=== PATIENT | female | born 1995 | race American Indian/Alaskan Native ===

== ENCOUNTER 2020-07-03 10:56 | Observation (INO) | payer OTHER ==
--- NOTE | 2020-07-03 15:12 | Ultrasound Report ---
US OB BPP wo non-stress, US OB limited INDICATION / CLINICAL INFORMATION: well being. COMPARISON: None available. FINDINGS: A single live fetus is seen in cephalic presentation. heart rate is 149. PAGE is 14.4. The place nta is fundal and grade 2 with multiple echogenic areas in it. BPP is 6/8 due to abnormal postu re and tone IMPRESSION: Single live fetus in cephalic presentation with heart rate of 149. PAGE is 14.4. Multiple echoge jennifer areas are seen in the placenta. BPP is 6/8 due to abnormal posture and tone Signer Name: Gael Crawford MD FACR Signed: 07/03/2020 3:08 PM Workstation Name: [id number]
--- NOTE | 2020-07-04 07:59 | Ultrasound Report ---
ULTRASOUND BIOPHYSICAL PROFILE INDICATION: last bpp6// wellbeing. COMPARISON: 07/03/2020 FINDINGS: heart rate is 148 beats per minute. breathing movement = 2 Gross body movement = 2 tone = 2 Qualitative amniotic fluid volume = 2 IMPRESSION: biophysical profile = 05/12 Signer Name: Harry Holliday Jr, MD Signed: 07/04/2020 7:54 AM Workstation Name: [id number]
[2020-07-04 09:18] VITALS: BP 108/65
== END 2020-07-04 11:30 | disposition home or self-care (01) ==
LOC: TRG 10:56 → APU 10:56 → LD 11:10 → TRG 11:10
PROVIDERS: ADMIT Obstetrics & Gynecology; ATTEND Obstetrics & Gynecology
DX: O48.0 Post-term pregnancy (principal); Z3A.40 40 weeks gestation of pregnancy
CPT/HCPCS: 76815; 76819; G0378

== ENCOUNTER 2020-07-10 15:14 | Inpatient (IN) | payer OTHER ==
[2020-07-10] MEDS ORDERED: fentaNYL 100 MCG/2 ML INJ IV PRN (18:05)
[2020-07-10] MEDS ORDERED: MINERAL OIL 30 ML ORAL LIQD PO PRN (18:05)
[2020-07-10] MEDS ORDERED: ONDANSETRON 4 MG/2 ML INJ IV PRN (18:05)
[2020-07-10] MEDS ORDERED: TERBUTALINE 1 MG/1 ML INJ SUB-Q PRN (18:05)
[2020-07-10] MEDS ORDERED: LIDOCAINE (2%) 20 MG/1 ML VIAL 20 ML MDV INFILTRATI ONE (18:05)
[2020-07-10] MEDS ORDERED: ePHEDrine SULFATE 50 MG/1 ML INJ IV PRN (18:05)
[2020-07-10] MEDS ORDERED: AMPICILLIN/NS 2 GM/100 ML 2 GM/100 ML BAG IV ONE (18:05)
--- NOTE | 2020-07-10 18:42 | History and Physical Report ---
History of Present Illness Date of examination: 07/10/20 Date of admission: 07/10/20 15:14 Chief complaint: IOL secondary to post-date History of present illness: 25 yo, @ 41.1 wks, initiated care with [facility] at 9.1 wks gestation. Her has been complicated by +GBS culture, varicella non- immune status and infant flattened nasal bone (not absent, care co-managed by [facility]. She reports to [facility] for scheduled IOL secondary to post-date . She reports +FM. Denies any VB or LOF. Labs: B+, antibody negative; PAP smear normal; rubella immune; VDRL non-reactive; urine culture negative; HIV negative; varicella non-immune; GC/Chlamydia/Trich negative; 1 hr gtt unknown; GBS positive. Past History Past Medical History: no pertinent history Past Surgical History: other (Elective ) Family/Genetic History: cancer (PGF - prostate) Social history: single, Lives alone, full code. denies: smoking, alcohol abuse, prescription drug abuse, IV drug use - Obstetrical History Expected Date of Delivery: 07/02/20 Actual Gestation: 41 Week(s) 1 Day(s) : 2 Para: 0 Hx # Term Pregnancies: 0 Number of Pregnancies: 0 Spontaneous Abortions: 0 Induced : 1 Number of Living Children: 0 Medications and Allergies Allergies Allergy/AdvReac Type Severity Reaction Status Date / Time No Known Allergies Allergy Verified 07/03/20 11:09 Home Medications Medication Instructions Recorded Confirmed Last Taken Type No Known Home Medications [No 07/03/20 07/03/20 Unknown History Reported Home Medications] Active Meds: Active Medications Butorphanol Tartrate (Stadol) 2 mg IV Q2H PRN PRN Reason: Pain , Severe (7-10) Ephedrine Sulfate (Ephedrine Sulfate) 10 mg IV Q2M PRN PRN Reason: Hypotension Fentanyl (Sublimaze) 100 mcg IV Q2H PRN PRN Reason: Pain,Severe (7-10) LABOR PAIN Oxytocin/Sodium Chloride (Pitocin/Ns 30 Unit/500ml) 30 units in 500 mls @ 2 mls/hr IV TITR CAROLINE; Protocol Lactated Ringer's (Lactated Ringers) 1,000 mls @ 125 mls/hr IV DIRECT CAROLINE Oxytocin/Sodium Chloride (Pitocin/Ns 30 Unit/500ml) 30 units in 500 mls @ 40 mls/hr IV TITR CAROLINE; Protocol Ampicillin Sodium (Ampicillin/Ns 2 Gm/100 Ml) 2 gm in 100 mls @ 100 mls/hr IV ONCE ONE; Protocol Stop: 07/10/20 19:04 Ampicillin Sodium (Ampicillin/Ns 1 Gm/50 Ml) 1 gm in 50 mls @ 100 mls/hr IV Q4HR CAROLINE; Protocol Mineral Oil (Mineral Oil) 30 ml PO QHS PRN PRN Reason: Constipation Ondansetron HCl (Zofran) 4 mg IV Q8H PRN PRN Reason: Nausea And Vomiting Terbutaline Sulfate (Brethine) 0.25 mg SUB-Q ONCE PRN PRN Reason: Hyperstimulation/Hypertonicity Review of Systems All systems: negative - Physical Exam Breasts: Positive: normal Cardiovascular: Regular rate Lungs: Positive: Normal air movement Abdomen: Positive: other (gravid) Genitourinary (Female): Positive: normal external genitalia, normal perenium Vagina: Positive: normal moisture Uterus: Positive: enlarged (S=D) Deep Tendon Reflex Grade: Normal +2 - Obstetrical FHR: category 1 Uterine Contraction Monitor Mode: External Cervical Dilatation: 0 (vertex, confirmed by U/S) Cervical Effacement Percentage: 50 station: -3 Uterine Contraction Pattern: Absent Uterine Tone Measurement Phase: Resting Results All other labs normal. Assessment and Plan - Patient Problems (1) Encounter for induction of labor Current Visit: Yes Status: Acute Plan to address problem: Admit to L & D Cervidil x 12 hrs as tolerated Pain meds as desired per order Anticipate (2) GBS (group B Streptococcus carrier), +RV culture, currently Current Visit: Yes Status: Acute Plan to address problem: Initiate GBS protocol (3) Maternal varicella, non-immune Current Visit: Yes Status: Acute
[2020-07-10] MEDS ORDERED: OXYTOCIN DRIP 30 UNITS/500 ML BAG IV SCH (19:00)
[2020-07-10 19:19] LABS: Hematocrit 35.8 % (30.3-42.9); Hemoglobin 12.2 gm/dl (10.1-14.3); Mean Corpuscular HGB Conc 34 % (30-34); Mean Corpuscular Volume 92 fl (79-97); Platelet Count 342 K/mm3 (140-440); Red Blood Count 3.91 M/mm3 (3.65-5.03); Red Cell Distribution Width 14.6 % (13.2-15.2)
[2020-07-10] MEDS ORDERED: DINOPROSTONE 10 MG VAG SUPP VG ONE (20:28)
[2020-07-10] MEDS: LACTATED RINGERS 1,000 ML IV SCH (21:28)
[2020-07-11] MEDS ORDERED: AMPICILLIN/NS 2 GM/100 ML 2 GM/100 ML BAG IV ONE (08:24)
--- NOTE | 2020-07-11 10:34 | Progress Note ---
Assessment and Plan A: IUP @ 41 2/7 Weeks Category I Tracing GBS Positive P: Cook's Cervical Ripening Balloon Placed Start Low-Dose Pitocin Continue GBS Prophylaxis Subjective - Subjective Date of service: 07/11/20 Patient reports: movement normal Objective - Vital Signs Vital Signs: Vital Signs - 12hr 07/10/20 07/10/20 07/10/20 22:35 22:40 22:45 Temperature Pulse Rate 110 H 113 H 114 H Respiratory Rate Blood Pressure Blood Pressure [Right] O2 Sat by Pulse 96 95 97 Oximetry 07/10/20 07/10/20 07/10/20 22:50 22:55 23:00 Temperature Pulse Rate 107 H 117 H 117 H Respiratory Rate Blood Pressure Blood Pressure [Right] O2 Sat by Pulse 95 96 97 Oximetry 07/10/20 07/10/20 07/10/20 23:05 23:10 23:15 Temperature Pulse Rate 120 H 116 H 119 H Respiratory Rate Blood Pressure Blood Pressure [Right] O2 Sat by Pulse 96 96 96 Oximetry 07/10/20 07/10/20 07/10/20 23:20 23:25 23:30 Temperature Pulse Rate 111 H 114 H 108 H Respiratory Rate Blood Pressure Blood Pressure [Right] O2 Sat by Pulse 96 97 97 Oximetry 07/10/20 07/10/20 07/10/20 23:35 23:40 23:52 Temperature Pulse Rate 117 H 109 H 104 H Respiratory Rate Blood Pressure Blood Pressure [Right] O2 Sat by Pulse 96 97 97 Oximetry 07/10/20 07/11/20 07/11/20 23:57 00:00 00:01 Temperature 97.8 F Pulse Rate 112 H 114 H Respiratory Rate Blood Pressure 108/59 Blood Pressure [Right] O2 Sat by Pulse 97 Oximetry 07/11/20 07/11/20 07/11/20 00:02 00:07 00:12 Temperature Pulse Rate 108 H 111 H 109 H Respiratory Rate Blood Pressure Blood Pressure [Right] O2 Sat by Pulse 96 96 96 Oximetry 07/11/20 07/11/20 07/11/20 00:17 00:22 00:27 Temperature Pulse Rate 103 H 112 H 108 H Respiratory Rate Blood Pressure Blood Pressure [Right] O2 Sat by Pulse 97 97 97 Oximetry 07/11/20 07/11/20 07/11/20 00:32 00:37 00:42 Temperature Pulse Rate 111 H 113 H 112 H Respiratory Rate Blood Pressure Blood Pressure [Right] O2 Sat by Pulse 95 96 96 Oximetry 07/11/20 07/11/20 07/11/20 00:47 00:52 00:57 Temperature Pulse Rate 109 H 105 H 113 H Respiratory Rate Blood Pressure Blood Pressure [Right] O2 Sat by Pulse 97 97 96 Oximetry 07/11/20 07/11/20 07/11/20 00:59 01:02 01:04 Temperature Pulse Rate 114 H 113 H 112 H Respiratory Rate Blood Pressure Blood Pressure [Right] O2 Sat by Pulse 94 96 94 Oximetry 07/11/20 07/11/20 07/11/20 01:07 01:12 01:17 Temperature Pulse Rate 115 H 112 H 111 H Respiratory Rate Blood Pressure Blood Pressure [Right] O2 Sat by Pulse 95 95 95 Oximetry 07/11/20 07/11/20 07/11/20 01:19 01:22 01:24 Temperature Pulse Rate 108 H 115 H 112 H Respiratory Rate Blood Pressure Blood Pressure [Right] O2 Sat by Pulse 94 95 94 Oximetry 07/11/20 07/11/20 07/11/20 01:27 01:32 01:51 Temperature Pulse Rate 111 H 113 H 115 H Respiratory Rate Blood Pressure Blood Pressure [Right] O2 Sat by Pulse 94 96 96 Oximetry 07/11/20 07/11/20 07/11/20 01:56 01:59 02:01 Temperature Pulse Rate 113 H 111 H 110 H Respiratory Rate Blood Pressure Blood Pressure [Right] O2 Sat by Pulse 95 94 96 Oximetry 07/11/20 07/11/20 07/11/20 02:06 02:11 02:15 Temperature Pulse Rate 110 H 109 H 110 H Respiratory Rate Blood Pressure Blood Pressure [Right] O2 Sat by Pulse 96 95 94 Oximetry 07/11/20 07/11/20 07/11/20 02:16 02:21 02:26 Temperature Pulse Rate 110 H 110 H 112 H Respiratory Rate Blood Pressure Blood Pressure [Right] O2 Sat by Pulse 95 95 94 Oximetry 07/11/20 07/11/20 07/11/20 02:31 02:36 02:41 Temperature Pulse Rate 107 H 111 H 110 H Respiratory Rate Blood Pressure Blood Pressure [Right] O2 Sat by Pulse 97 94 98 Oximetry 07/11/20 07/11/20 07/11/20 02:46 02:51 02:56 Temperature Pulse Rate 108 H 110 H 104 H Respiratory Rate Blood Pressure Blood Pressure [Right] O2 Sat by Pulse 98 98 94 Oximetry 07/11/20 07/11/20 07/11/20 03:01 03:06 03:10 Temperature Pulse Rate 101 H 111 H 112 H Respiratory Rate Blood Pressure Blood Pressure [Right] O2 Sat by Pulse 97 95 94 Oximetry 07/11/20 07/11/20 07/11/20 03:11 03:16 03:21 Temperature Pulse Rate 115 H 113 H 112 H Respiratory Rate Blood Pressure Blood Pressure [Right] O2 Sat by Pulse 95 95 95 Oximetry 07/11/20 07/11/20 07/11/20 03:24 03:26 03:50 Temperature Pulse Rate 116 H 117 H 107 H Respiratory Rate Blood Pressure Blood Pressure [Right] O2 Sat by Pulse 94 94 97 Oximetry 07/11/20 07/11/20 07/11/20 03:55 04:00 04:05 Temperature Pulse Rate 107 H 108 H 105 H Respiratory Rate Blood Pressure 105/58 Blood Pressure [Right] O2 Sat by Pulse 95 97 95 Oximetry 07/11/20 07/11/20 07/11/20 04:10 04:15 04:20 Temperature Pulse Rate 105 H 105 H 102 H Respiratory Rate Blood Pressure Blood Pressure [Right] O2 Sat by Pulse 95 95 95 Oximetry 07/11/20 07/11/20 07/11/20 04:23 04:25 04:30 Temperature 97.8 F Pulse Rate 119 H 104 H Respiratory Rate Blood Pressure Blood Pressure [Right] O2 Sat by Pulse 97 95 Oximetry 07/11/20 07/11/20 07/11/20 04:33 04:35 04:40 Temperature Pulse Rate 106 H 107 H 110 H Respiratory Rate Blood Pressure Blood Pressure [Right] O2 Sat by Pulse 94 95 95 Oximetry 07/11/20 07/11/20 07/11/20 04:45 04:50 04:55 Temperature Pulse Rate 111 H 123 H 105 H Respiratory Rate Blood Pressure Blood Pressure [Right] O2 Sat by Pulse 96 96 97 Oximetry 07/11/20 07/11/20 07/11/20 05:27 05:32 05:37 Temperature Pulse Rate 108 H 111 H 108 H Respiratory Rate Blood Pressure Blood Pressure [Right] O2 Sat by Pulse 96 96 96 Oximetry 07/11/20 07/11/20 07/11/20 05:42 05:47 05:52 Temperature Pulse Rate 106 H 108 H 108 H Respiratory Rate Blood Pressure Blood Pressure [Right] O2 Sat by Pulse 96 96 96 Oximetry 07/11/20 07/11/20 07/11/20 05:57 06:02 06:07 Temperature Pulse Rate 109 H 108 H 111 H Respiratory Rate Blood Pressure Blood Pressure [Right] O2 Sat by Pulse 96 96 96 Oximetry 07/11/20 07/11/20 07/11/20 06:12 06:17 06:22 Temperature Pulse Rate 109 H 120 H 112 H Respiratory Rate Blood Pressure Blood Pressure [Right] O2 Sat by Pulse 96 96 95 Oximetry 07/11/20 07/11/20 07/11/20 06:24 06:27 06:29 Temperature Pulse Rate 110 H 114 H 111 H Respiratory Rate Blood Pressure Blood Pressure [Right] O2 Sat by Pulse 94 95 94 Oximetry 07/11/20 07/11/20 07/11/20 06:32 06:37 06:42 Temperature Pulse Rate 114 H 114 H 109 H Respiratory Rate Blood Pressure Blood Pressure [Right] O2 Sat by Pulse 96 95 97 Oximetry 07/11/20 07/11/20 07/11/20 06:47 06:52 06:57 Temperature Pulse Rate 111 H 104 H 113 H Respiratory Rate Blood Pressure Blood Pressure [Right] O2 Sat by Pulse 95 96 95 Oximetry 07/11/20 07/11/20 07/11/20 06:59 07:02 07:07 Temperature Pulse Rate 107 H 114 H 109 H Respiratory Rate Blood Pressure Blood Pressure [Right] O2 Sat by Pulse 94 96 96 Oximetry 07/11/20 07/11/20 07/11/20 07:11 07:12 07:16 Temperature 98.2 F Pulse Rate 106 H 109 H 103 H Respiratory 18 Rate Blood Pressure 103/62 Blood Pressure 103/62 [Right] O2 Sat by Pulse 97 96 94 Oximetry 07/11/20 07/11/20 07/11/20 07:17 07:22 07:27 Temperature Pulse Rate 109 H 112 H 109 H Respiratory Rate Blood Pressure Blood Pressure [Right] O2 Sat by Pulse 96 96 96 Oximetry 07/11/20 07/11/20 07/11/20 07:32 07:37 07:42 Temperature Pulse Rate 113 H 108 H 106 H Respiratory Rate Blood Pressure Blood Pressure [Right] O2 Sat by Pulse 96 97 98 Oximetry 07/11/20 07/11/20 07/11/20 07:48 08:33 08:38 Temperature Pulse Rate 110 H 98 H Respiratory Rate Blood Pressure 103/71 Blood Pressure [Right] O2 Sat by Pulse 99 95 97 Oximetry 07/11/20 07/11/20 07/11/20 08:43 08:48 08:53 Temperature Pulse Rate 110 H 104 H 104 H Respiratory Rate Blood Pressure Blood Pressure [Right] O2 Sat by Pulse 98 98 98 Oximetry 07/11/20 07/11/20 07/11/20 08:58 09:03 09:08 Temperature Pulse Rate 102 H 102 H 104 H Respiratory Rate Blood Pressure Blood Pressure [Right] O2 Sat by Pulse 97 98 98 Oximetry 07/11/20 07/11/20 07/11/20 09:13 09:18 09:22 Temperature Pulse Rate 106 H 100 H 97 H Respiratory Rate Blood Pressure 106/63 Blood Pressure [Right] O2 Sat by Pulse 98 99 Oximetry 07/11/20 07/11/20 07/11/20 09:23 09:28 09:33 Temperature Pulse Rate 105 H 105 H 107 H Respiratory Rate Blood Pressure Blood Pressure [Right] O2 Sat by Pulse 99 99 99 Oximetry 07/11/20 07/11/20 07/11/20 09:38 09:43 09:48 Temperature Pulse Rate 100 H 99 H 106 H Respiratory Rate Blood Pressure Blood Pressure [Right] O2 Sat by Pulse 99 98 98 Oximetry 07/11/20 07/11/20 07/11/20 10:12 10:17 10:20 Temperature Pulse Rate 107 H 100 H 103 H Respiratory Rate Blood Pressure Blood Pressure [Right] O2 Sat by Pulse 99 100 85 Oximetry 07/11/20 07/11/20 10:22 10:27 Temperature Pulse Rate 109 H 111 H Respiratory Rate Blood Pressure Blood Pressure [Right] O2 Sat by Pulse 100 99 Oximetry - Exam Breasts: normal Cardiovascular: Regular rate Lungs: Clear to auscultation, Normal air movement Abdomen: Present: normal appearance, soft Uterus: Present: normal, firm, fundal height above umbilicus FHR: category 1 Uterine Contraction Monitor Mode: External Cervical Dilatation: 1 Cervical Effacement Percentage: 30 station: -3 Uterine Contraction Pattern: Irregular Uterine Tone Measurement Phase: Resting Uterine Contraction Intensity: Mild Extremities: normal - Labs Labs: Laboratory Results - last 24 hr 07/10/20 07/10/20 17:12 17:12 WBC 8.9 RBC 3.91 Hgb 12.2 Hct 35.8 MCV 92 MCH 31 MCHC 34 RDW 14.6 Plt Count 342 Blood Type B POSITIVE Antibody Screen Negative
[2020-07-11] MEDS: OXYTOCIN DRIP 30 UNITS/500 ML BAG IV SCH ×5 (10:45→18:39)
[2020-07-11] MEDS: LACTATED RINGERS 1,000 ML IV SCH ×2 (11:30→16:00)
[2020-07-11] MEDS: AMPICILLIN/NS 1 GM/50 ML 1 GM/50 ML BAG IV SCH ×3 (13:35→23:44)
--- NOTE | 2020-07-11 18:42 | Progress Note ---
Assessment and Plan A: IUP @ 41 2/7 Weeks Category I Tracing GBS Positive Active Labor P: AROM Continue Pitocin Augmentation Continue GBS Prophylaxis Subjective - Subjective Date of service: 07/11/20 Patient reports: movement normal, contractions Objective - Vital Signs Vital Signs: Vital Signs - 12hr 07/11/20 07/11/20 07/11/20 06:42 06:47 06:52 Temperature Pulse Rate 109 H 111 H 104 H Respiratory Rate Blood Pressure Blood Pressure [Right] O2 Sat by Pulse 97 95 96 Oximetry 07/11/20 07/11/20 07/11/20 06:57 06:59 07:02 Temperature Pulse Rate 113 H 107 H 114 H Respiratory Rate Blood Pressure Blood Pressure [Right] O2 Sat by Pulse 95 94 96 Oximetry 07/11/20 07/11/20 07/11/20 07:07 07:11 07:12 Temperature 98.2 F Pulse Rate 109 H 106 H 109 H Respiratory 18 Rate Blood Pressure 103/62 Blood Pressure 103/62 [Right] O2 Sat by Pulse 96 97 96 Oximetry 07/11/20 07/11/20 07/11/20 07:16 07:17 07:22 Temperature Pulse Rate 103 H 109 H 112 H Respiratory Rate Blood Pressure Blood Pressure [Right] O2 Sat by Pulse 94 96 96 Oximetry 07/11/20 07/11/20 07/11/20 07:27 07:32 07:37 Temperature Pulse Rate 109 H 113 H 108 H Respiratory Rate Blood Pressure Blood Pressure [Right] O2 Sat by Pulse 96 96 97 Oximetry 07/11/20 07/11/20 07/11/20 07:42 07:48 08:33 Temperature Pulse Rate 106 H 110 H Respiratory Rate Blood Pressure 103/71 Blood Pressure [Right] O2 Sat by Pulse 98 99 95 Oximetry 07/11/20 07/11/20 07/11/20 08:38 08:43 08:48 Temperature Pulse Rate 98 H 110 H 104 H Respiratory Rate Blood Pressure Blood Pressure [Right] O2 Sat by Pulse 97 98 98 Oximetry 07/11/20 07/11/20 07/11/20 08:53 08:58 09:03 Temperature Pulse Rate 104 H 102 H 102 H Respiratory Rate Blood Pressure Blood Pressure [Right] O2 Sat by Pulse 98 97 98 Oximetry 07/11/20 07/11/20 07/11/20 09:08 09:13 09:18 Temperature Pulse Rate 104 H 106 H 100 H Respiratory Rate Blood Pressure Blood Pressure [Right] O2 Sat by Pulse 98 98 99 Oximetry 07/11/20 07/11/20 07/11/20 09:22 09:23 09:28 Temperature Pulse Rate 97 H 105 H 105 H Respiratory Rate Blood Pressure 106/63 Blood Pressure [Right] O2 Sat by Pulse 99 99 Oximetry 07/11/20 07/11/20 07/11/20 09:33 09:38 09:43 Temperature Pulse Rate 107 H 100 H 99 H Respiratory Rate Blood Pressure Blood Pressure [Right] O2 Sat by Pulse 99 99 98 Oximetry 07/11/20 07/11/20 07/11/20 09:48 10:12 10:17 Temperature Pulse Rate 106 H 107 H 100 H Respiratory Rate Blood Pressure Blood Pressure [Right] O2 Sat by Pulse 98 99 100 Oximetry 07/11/20 07/11/20 07/11/20 10:20 10:22 10:27 Temperature Pulse Rate 103 H 109 H 111 H Respiratory Rate Blood Pressure Blood Pressure [Right] O2 Sat by Pulse 85 100 99 Oximetry 07/11/20 07/11/20 07/11/20 10:32 10:35 10:37 Temperature Pulse Rate 100 H 102 H 99 H Respiratory Rate Blood Pressure 110/59 Blood Pressure [Right] O2 Sat by Pulse 98 99 Oximetry 07/11/20 07/11/20 07/11/20 10:42 10:47 10:52 Temperature Pulse Rate 102 H 99 H 108 H Respiratory Rate Blood Pressure Blood Pressure [Right] O2 Sat by Pulse 99 99 99 Oximetry 07/11/20 07/11/20 07/11/20 10:57 11:01 11:02 Temperature 98.4 F Pulse Rate 109 H 103 H Respiratory Rate Blood Pressure Blood Pressure 120/71 [Right] O2 Sat by Pulse 99 100 Oximetry 07/11/20 07/11/20 07/11/20 11:04 11:07 11:12 Temperature Pulse Rate 102 H 109 H 111 H Respiratory Rate Blood Pressure 120/71 Blood Pressure [Right] O2 Sat by Pulse 99 99 Oximetry 07/11/20 07/11/20 07/11/20 11:17 11:19 11:22 Temperature Pulse Rate 107 H 109 H Respiratory 19 Rate Blood Pressure Blood Pressure [Right] O2 Sat by Pulse 99 100 Oximetry 07/11/20 07/11/20 07/11/20 11:27 11:32 11:35 Temperature Pulse Rate 107 H 103 H 105 H Respiratory Rate Blood Pressure 131/64 Blood Pressure [Right] O2 Sat by Pulse 100 100 Oximetry 07/11/20 07/11/20 07/11/20 11:37 11:42 11:58 Temperature Pulse Rate 102 H 100 H 113 H Respiratory Rate Blood Pressure Blood Pressure [Right] O2 Sat by Pulse 100 100 98 Oximetry 07/11/20 07/11/20 07/11/20 12:03 12:06 12:08 Temperature Pulse Rate 115 H 62 110 H Respiratory Rate Blood Pressure Blood Pressure [Right] O2 Sat by Pulse 98 84 99 Oximetry 07/11/20 07/11/20 07/11/20 12:10 12:13 12:18 Temperature Pulse Rate 110 H 110 H 106 H Respiratory Rate Blood Pressure 116/80 Blood Pressure [Right] O2 Sat by Pulse 98 98 Oximetry 07/11/20 07/11/20 07/11/20 12:23 12:28 12:33 Temperature Pulse Rate 108 H 113 H 112 H Respiratory Rate Blood Pressure Blood Pressure [Right] O2 Sat by Pulse 98 97 96 Oximetry 07/11/20 07/11/20 07/11/20 12:35 12:38 12:43 Temperature Pulse Rate 109 H 111 H 111 H Respiratory Rate Blood Pressure 98/56 Blood Pressure [Right] O2 Sat by Pulse 97 97 Oximetry 07/11/20 07/11/20 07/11/20 12:48 12:53 12:58 Temperature Pulse Rate 111 H 112 H 111 H Respiratory Rate Blood Pressure Blood Pressure [Right] O2 Sat by Pulse 96 96 96 Oximetry 07/11/20 07/11/20 07/11/20 13:03 13:05 13:08 Temperature Pulse Rate 111 H 108 H 111 H Respiratory Rate Blood Pressure 99/53 Blood Pressure [Right] O2 Sat by Pulse 96 97 Oximetry 07/11/20 07/11/20 07/11/20 13:13 13:18 13:23 Temperature Pulse Rate 113 H 108 H 112 H Respiratory Rate Blood Pressure Blood Pressure [Right] O2 Sat by Pulse 96 96 96 Oximetry 07/11/20 07/11/20 07/11/20 13:34 13:35 13:39 Temperature Pulse Rate 103 H 105 H 116 H Respiratory Rate Blood Pressure 109/53 Blood Pressure [Right] O2 Sat by Pulse 98 98 Oximetry 07/11/20 07/11/20 07/11/20 13:44 13:49 13:54 Temperature Pulse Rate 108 H 109 H 107 H Respiratory Rate Blood Pressure Blood Pressure [Right] O2 Sat by Pulse 98 97 97 Oximetry 07/11/20 07/11/20 07/11/20 13:59 14:04 14:07 Temperature Pulse Rate 107 H 113 H 107 H Respiratory Rate Blood Pressure 103/51 Blood Pressure [Right] O2 Sat by Pulse 97 97 Oximetry 07/11/20 07/11/20 07/11/20 14:09 14:14 14:19 Temperature Pulse Rate 112 H 109 H 105 H Respiratory Rate Blood Pressure Blood Pressure [Right] O2 Sat by Pulse 97 97 98 Oximetry 07/11/20 07/11/20 07/11/20 14:24 14:29 14:34 Temperature Pulse Rate 110 H 108 H 108 H Respiratory Rate Blood Pressure Blood Pressure [Right] O2 Sat by Pulse 97 97 97 Oximetry 07/11/20 07/11/20 07/11/20 14:35 14:39 14:44 Temperature Pulse Rate 107 H 116 H 105 H Respiratory Rate Blood Pressure 107/58 Blood Pressure [Right] O2 Sat by Pulse 98 97 Oximetry 07/11/20 07/11/20 07/11/20 14:49 14:54 14:59 Temperature Pulse Rate 110 H 109 H 111 H Respiratory Rate Blood Pressure Blood Pressure [Right] O2 Sat by Pulse 97 97 97 Oximetry 07/11/20 07/11/20 07/11/20 15:00 15:04 15:06 Temperature 98.3 F Pulse Rate 107 H 107 H 113 H Respiratory 18 Rate Blood Pressure 108/58 112/57 Blood Pressure 108/58 [Right] O2 Sat by Pulse 97 98 Oximetry 07/11/20 07/11/20 07/11/20 15:26 15:31 15:36 Temperature Pulse Rate 104 H 96 H 93 H Respiratory Rate Blood Pressure 91/49 Blood Pressure [Right] O2 Sat by Pulse 98 98 99 Oximetry 07/11/20 07/11/20 07/11/20 15:41 15:43 15:46 Temperature Pulse Rate 100 H 95 H 101 H Respiratory Rate Blood Pressure 92/55 Blood Pressure [Right] O2 Sat by Pulse 98 98 Oximetry 07/11/20 07/11/20 07/11/20 15:51 15:56 16:01 Temperature Pulse Rate 101 H 100 H 102 H Respiratory Rate Blood Pressure Blood Pressure [Right] O2 Sat by Pulse 98 98 98 Oximetry 07/11/20 07/11/20 07/11/20 16:06 16:07 16:11 Temperature Pulse Rate 102 H 99 H 98 H Respiratory Rate Blood Pressure 97/54 Blood Pressure [Right] O2 Sat by Pulse 99 98 Oximetry 07/11/20 07/11/20 07/11/20 16:16 16:21 16:26 Temperature Pulse Rate 100 H 105 H 98 H Respiratory Rate Blood Pressure Blood Pressure [Right] O2 Sat by Pulse 98 98 98 Oximetry 07/11/20 07/11/20 07/11/20 16:31 16:41 16:46 Temperature Pulse Rate 98 H 107 H 106 H Respiratory Rate Blood Pressure Blood Pressure [Right] O2 Sat by Pulse 98 99 98 Oximetry 07/11/20 07/11/20 07/11/20 16:51 16:56 17:01 Temperature Pulse Rate 103 H 99 H 101 H Respiratory Rate Blood Pressure Blood Pressure [Right] O2 Sat by Pulse 98 97 98 Oximetry 07/11/20 07/11/20 07/11/20 17:05 17:06 17:11 Temperature Pulse Rate 100 H 111 H 101 H Respiratory Rate Blood Pressure 107/65 Blood Pressure [Right] O2 Sat by Pulse 98 98 Oximetry 07/11/20 07/11/20 07/11/20 17:16 17:21 17:26 Temperature Pulse Rate 107 H 104 H 99 H Respiratory Rate Blood Pressure Blood Pressure [Right] O2 Sat by Pulse 98 99 98 Oximetry 07/11/20 07/11/20 07/11/20 17:31 17:35 17:42 Temperature Pulse Rate 100 H 100 H 105 H Respiratory Rate Blood Pressure 107/57 Blood Pressure [Right] O2 Sat by Pulse 99 100 Oximetry 07/11/20 07/11/20 07/11/20 17:47 17:52 17:57 Temperature Pulse Rate 106 H 106 H 101 H Respiratory Rate Blood Pressure Blood Pressure [Right] O2 Sat by Pulse 100 99 99 Oximetry 07/11/20 07/11/20 07/11/20 18:02 18:07 18:12 Temperature Pulse Rate 114 H 107 H 101 H Respiratory Rate Blood Pressure 112/57 Blood Pressure [Right] O2 Sat by Pulse 100 100 99 Oximetry 07/11/20 07/11/20 07/11/20 18:21 18:26 18:31 Temperature Pulse Rate 106 H 105 H 114 H Respiratory Rate Blood Pressure Blood Pressure [Right] O2 Sat by Pulse 99 99 100 Oximetry 07/11/20 18:36 Temperature Pulse Rate 107 H Respiratory Rate Blood Pressure 122/59 Blood Pressure [Right] O2 Sat by Pulse 99 Oximetry - Exam Abdomen: Present: normal appearance, soft Uterus: Present: normal, firm, fundal height above umbilicus FHR: category 1 Uterine Contraction Monitor Mode: External Cervical Dilatation: 6.5 (AROM of a moderate amt of clear fluid at 18:35) Cervical Effacement Percentage: 60 station: -2 Uterine Contraction Frequency (min): 2 Uterine Contraction Pattern: Regular Uterine Tone Measurement Phase: Resting Uterine Contraction Intensity: Moderate Extremities: normal - Labs Labs: Laboratory Results - last 24 hr 07/10/20 07/10/20 17:12 17:12 WBC 8.9 RBC 3.91 Hgb 12.2 Hct 35.8 MCV 92 MCH 31 MCHC 34 RDW 14.6 Plt Count 342 Blood Type B POSITIVE Antibody Screen Negative
[2020-07-11] MEDS: BUTORPHANOL 2 MG/1 ML INJ IV PRN ×2 (21:20→23:54)
[2020-07-11] MEDS ORDERED: NalbUPHINE 10 MG/1 ML INJ IV PRN (22:40)
[2020-07-12] MEDS: LACTATED RINGERS 1,000 ML IV SCH ×3 (01:55→06:45)
[2020-07-12] MEDS ORDERED: fentaNYL-BUPIV 2 MCG/ML-0.125% 200 MCG/100 ML BAG EPIDURAL ONE (02:38)
[2020-07-12] MEDS ORDERED: DEXMEDETOMIDINE 200 MCG/2 ML VIAL IV ONE (03:01)
[2020-07-12] MEDS ORDERED: ONDANSETRON 4 MG/2 ML INJ IV PRN (03:27)
[2020-07-12] MEDS ORDERED: NalbUPHINE 10 MG/1 ML INJ IV PRN (03:27)
[2020-07-12] MEDS ORDERED: NALOXONE 2 MG/2 ML INJ IV PRN (03:27)
[2020-07-12] MEDS ORDERED: diphenhydrAMINE 50 MG/ML VIAL IV PRN (03:27)
--- NOTE | 2020-07-12 03:28 | Anesthesia Consultation ---
Anesthesia Consult and Med Hx Date of service: 07/12/20 - Airway Anesthetic Teeth Evaluation: Good ROM Head & Neck: Adequate Mental/Hyoid Distance: Adequate Intubation Access Assessment: Good - Pulmonary Exam CTA: Yes - Cardiac Exam Cardiac Exam: RRR - Pre-Operative Health Status ASA Pre-Surgery Classification: ASA2 Proposed Anesthetic Plan: Epidural - Pulmonary Hx Smoking: No Hx Asthma: No COPD: No Hx Pneumonia: No Hx Sleep Apnea: No - Cardiovascular System Hx Hypertension: No - Central Nervous System Hx Seizures: No Hx Psychiatric Problems: No - Gastrointestinal Hx Gastroesophageal Reflux Disease: No - Endocrine Hx Renal Disease: No Hx End Stage Renal Disease: No Hx Hypothyroidism: No Hx Hyperthyroidism: No - Hematic Hx Anemia: Yes (no meds) Hx Sickle Cell Disease: No - Other Systems Hx Alcohol Use: No
--- NOTE | 2020-07-12 03:30 | Progress Note ---
Labor Epidural - Labor Epidural Start Time: 03:07 Stop Time: 03:21 Performed by:: RENAE CHEUNG Procedure: Patient is requesting a laboring epidural for laboring pain. Patient IDed, H&P reviewed, all questions and concerns were answered, and consent was signed. Timeout was performed at bedside. Patient in sitting position. Sterile prep and drape was performed. 3ml of 1% lidocaine skin wheal at L[3]- L [4]. 18- gauge Touhy epidural needle was advanced to loss of resistance with air technique. Negative CSF negative blood. Epidural catheter advanced to [12] centimeters. [-] Aspiration [-] test dose. Sterile dressing applied. Patient tolerated procedure.
[2020-07-12] MEDS: AMPICILLIN/NS 1 GM/50 ML 1 GM/50 ML BAG IV SCH (03:44)
[2020-07-12] MEDS ORDERED: fentaNYL-BUPIV 2 MCG/ML-0.125% 200 MCG/100 ML BAG EPIDURAL SCH (04:00)
--- NOTE | 2020-07-12 08:24 | Procedure Note ---
OB Delivery Note - Delivery Date of Delivery: 07/12/20 (0751) Surgeon: NOELLE FLOR Estimated blood loss: other (250) - Vaginal Delivery presentation: vertex Delivery position: OA Delivery induction: cervidil Delivery augmentation: rupture of membranes, pitocin Delivery monitor: external FHT, external uterine Route of delivery: Delivery placenta: spontaneous Delivery cord: 3 umbilical vessels Episiotomy: none Delivery laceration: none Anesthesia: epidural Delivery comments: of a live 7'6 female over a intact perineum under epidural anesthesia with Apgars of 5 and 9 at 0751 on 07/12/2020. Cord clamped and cut by JESUS Flor, infant to warmer; code [place] called. Cord blood gasses collected x 2. Spontaneous delivery of placenta complete and intact with [place]lain side at 0800. Fundus is firm and midline located 3 below the U. Lochia is scant. GBS prophylaxis x 6. - A at 1 minute: 5 at 5 minutes: 9 Gender: Female (7'6)
[2020-07-12] MEDS ORDERED: WITCH HAZEL/ GLYCERIN PAD TP PRN (09:00)
[2020-07-12] MEDS ORDERED: HYDROcodone/ACETAMINOPHEN 5-325 MG TAB PO PRN (09:00)
[2020-07-12] MEDS ORDERED: LANOLIN/ZINC/DIMETHICONE (LANSINOH) 7 GM TP PRN (09:00)
--- NOTE | 2020-07-12 09:31 | Post Anesthesia Evaluation ---
- Post Anesthesia Evaluation Patient Participated: Yes Airway Patent: Yes Stable Respiratory Function: Yes Nausea/Vomiting: No Temp > 96.8F: Yes Pain Manageable: Yes Adequeate Hydration: Yes Anesthesia Complications: No Block Receding Appropriately: Yes Patient on Ventilator: No
[2020-07-12] MEDS: IBUPROFEN 600 MG TAB PO SCH ×3 (12:05→23:55)
[2020-07-13 01:53] LABS: Hematocrit 31.8 % (30.3-42.9); Hemoglobin 10.6 gm/dl (10.1-14.3)
[2020-07-13] MEDS: IBUPROFEN 600 MG TAB PO SCH ×2 (05:14→13:10)
--- NOTE | 2020-07-13 09:29 | Discharge Summary ---
Providers - Providers Date of Admission: 07/10/20 15:14 Date of discharge: 07/13/20 (1200) Attending physician: LEX GARDUNO JR, MD Primary care physician: LEX GARDUNO JR, MD Hospitalization Reason for admission: induction of labor (secondary to post-dates) Delivery: Episiotomy: none Laceration: none complications: none Discharge diagnosis: IUP at term delivered baby: female Hospital course: See admission H & P; OB delivery summary and PP progress notes Condition at discharge: Good Disposition: DC-01 TO HOME OR SELFCARE - Discharge Diagnoses (1) Status post normal vaginal delivery Status: Acute (2) Anemia Status: Acute Qualifiers: Anemia type: other cause Other causes of anemia: acute posthemorrhagic Qualified Code(s): D62 - Acute posthemorrhagic anemia Comment: Asymptomatic Plan - Provider Discharge Summary Activity: routine, no sex for 6 weeks, no heavy lifting 4 weeks, no strenuous exercise Diet: other (Iron rich diet) Instructions: routine Additional instructions: [] Smoking cessation referral if applicable(refer to patient education folder for contact #) [] Refer to [facility] Booklet Call your doctor immediately for: * Fever > 100.5 * Heavy vaginal bleeding ( >1 pad per hour) * Severe persistent headache * Shortness of breath * Reddened, hot, painful area to leg or breast - Follow up plan Follow up: LEX GARDUNO JR, MD [Primary Care Provider] - 6 Weeks
[2020-07-13 17:03] VITALS: BP 112/56
== END 2020-07-13 15:45 | disposition home or self-care (01) | DRG 775 ==
LOC: APU 15:14 → LD 15:22 → OB 07-12 10:34
PROVIDERS: ADMIT Obstetrics & Gynecology; ATTEND Obstetrics & Gynecology
PROC: 10907ZC Drainage of Amniotic Fluid, Therapeutic from Products of Conception, Via Natural or Artificial Opening (ICD-10-PCS; 2020-07-11)
PROC: 3E0P7VZ Introduction of Hormone into Female Reproductive, Via Natural or Artificial Opening (ICD-10-PCS; principal; 2020-07-12)
PROC: 10E0XZZ Delivery of Products of Conception, External Approach (ICD-10-PCS; 2020-07-12)
PROC: 3E0R3BZ Introduction of Anesthetic Agent into Spinal Canal, Percutaneous Approach (ICD-10-PCS; 2020-07-12)
PROC: 00HU33Z Insertion of Infusion Device into Spinal Canal, Percutaneous Approach (ICD-10-PCS; 2020-07-12)
DX: O48.0 Post-term pregnancy (principal); Z3A.41 41 weeks gestation of pregnancy; Z37.0 Single live birth; O99.824 Streptococcus B carrier state complicating childbirth; O90.81 Anemia of the puerperium; D62 Acute posthemorrhagic anemia
CPT/HCPCS: 36415; 59200; 85014; 85018; 85027; 86850; 86900; 86901; G0378; J0290; J0595; J2590; J3010; J3490; J7120

== ENCOUNTER 2021-09-19 11:03 | Outpatient (CLI) | payer OTHER ==
--- NOTE | 2021-09-19 13:18 | Ultrasound Report ---
ULTRASOUND BIOPHYSICAL PROFILE INDICATION / CLINICAL INFORMATION: variables. well being.. COMPARISON: None available. FINDINGS: BREATHING MOVEMENT = 2 GROSS BODY MOVEMENT = 2 TONE = 2 QUALITATIVE AMNIOTIC FLUID VOLUME = 2 TOTAL BIOPHYSICAL SCORE = 05/12 PRESENTATION: Cephalic. HEART RATE (beats per minute): 152 IMPRESSION: 1. biophysical profile = 05/12 Signer Name: Hayden Sierra MD Signed: 09/19/2021 1:14 PM Workstation Name: [id number]
[2021-09-19 14:19] VITALS: BP 106/58
== END 2021-09-19 14:27 | disposition home or self-care (01) ==
LOC: TRG 11:03 → APU 11:04 → TRG 14:27
PROVIDERS: ATTEND Obstetrics & Gynecology
DX: Z34.93 Encounter for supervision of normal pregnancy, unspecified, third trimester (principal); Z3A.39 39 weeks gestation of pregnancy
CPT/HCPCS: 59025; 76819